=== PATIENT | female | born 1995 | race Caucasian/White ===

== ENCOUNTER → 2023-09-22 16:57 | Outpatient (CLI) | payer OTHER, MEDICAID, SELFPAY ==
--- NOTE | 2023-09-22 17:00 | DI.RAD.S_ITS ---
PROCEDURE: XR RIBS LT MIN 3V W CXR1V INDICATIONS: chest pain, rib pain TECHNIQUE: 2 views of the ribs were acquired, along with a single view chest. COMPARISON: None. FINDINGS: Surgical changes and devices: None. Bones and chest wall: No fractures or dislocations. No suspicious bony lesions. Overlying soft tissues appear unremarkable. Lungs and pleura: No pleural effusions or pneumothorax. Lungs appear clear. Mediastinum: Mediastinal contours appear normal. Heart size is normal. IMPRESSION: No displaced rib fracture or pneumothorax. Dictated by: Royal Kay M.D. on 09/23/2023 at 10:52 Approved by: Royal Kay M.D. on 09/23/2023 at 11:01
== END ==
PROVIDERS: PCP Family Medicine; Referring Provider Family Medicine; Visit Provider Family Medicine
DX: R07.9 Chest pain, unspecified (principal)
CPT/HCPCS: 71101

== ENCOUNTER → 2023-09-26 16:33 | Outpatient (CLI) | payer OTHER, MEDICAID, SELFPAY ==
[2023-09-26 17:26] LABS: Add Manual Diff / Slide Review NO; Basophils Absolute Auto 0 /uL (0-100); Basophils Percent Auto 0.4 % (0-2); Eosinophils Absolute Auto 100 /uL (0-450); Eosinophils Percent Auto 3.1 % (2-4); Hematocrit 37.3 % (36-46); Hemoglobin 12.7 g/dL (12.0-16.0); Lymphocytes Absolute Auto 2100 /uL (1100-4500); Lymphocytes Percent Auto 44.6 % (25-40); Mean Corpuscular HGB Conc 34.1 % (30-36); Mean Corpuscular Hemoglobin 32.4 PG (26-34); Mean Corpuscular Volume 95.1 fL (80-100); Monocytes Absolute Auto 400 /uL (0-900); Monocytes Percent Auto 7.8 % (3-14); Neutrophils Absolute Auto 2100 /uL (1500-7000); Neutrophils Percent Auto 44.1 % (50-75); Platelet Count 197 X10^3/uL (150-400); Red Blood Cell Count 3.93 X10^6/uL (4.0-5.2); Red Cell Distribution Width 12.9 % (11.6-14.8); White Blood Cell Count 4.8 X10^3/uL (4.5-11.0)
[2023-09-26 18:04] LABS: Erythrocyte Sedimentation Rate 5 MM/HR (0-20)
[2023-09-26 18:41] LABS: TSH w/ Reflex to FT4 2.11 uIU/mL (0.47-4.68)
[2023-09-26 21:23] LABS: Alanine Aminotransferase 17 IU/L (<35); Albumin 4.4 g/dL (3.5-5.0); Albumin Globulin Ratio 1.7 (1.0-2.8); Alkaline Phosphatase 49 U/L (38-126); Aspartate Aminotransferase 27 IU/L (14-36); BUN Creatinine Ratio 27.5 (6-22); Bilirubin Total 0.9 mg/dL (0.2-1.3); Blood Urea Nitrogen 19 mg/dL (7-17); C-Reactive Protein Quant < 0.5 mg/dL (<1.0); Calcium 9.4 mg/dL (8.4-10.2); Carbon Dioxide 24 mmol/L (22-32); Chloride 106 mmol/L (98-107); Estimated Glomerular Filt Rate > 60 mL/min (>60); Globulin 2.6 g/dL (1.7-4.1); Glucose 90 mg/dL (70-100); HEMOLYSIS < 15 (0-50); Potassium 4.4 mmol/L (3.4-5.1); Sodium 136 mmol/L (137-145)
== END ==
PROVIDERS: PCP Family Medicine; Referring Provider Family Medicine; Visit Provider Family Medicine
DX: K92.1 Melena (principal); J34.2 Deviated nasal septum; M25.521 Pain in right elbow; F41.9 Anxiety disorder, unspecified; F32.A Depression, unspecified
CPT/HCPCS: 36415; 80053; 82784; 83516; 84443; 85025; 85651; 86140

== ENCOUNTER → 2023-10-13 15:05 | Outpatient (CLI) | payer OTHER, MEDICAID, SELFPAY | LOC: CAR 15:06 | PROVIDERS: PCP Family Medicine; Referring Provider Family Medicine; Visit Provider Family Medicine | DX: R07.9 Chest pain, unspecified (principal) | CPT/HCPCS: 93246 ==

== ENCOUNTER → 2023-12-21 06:47 | Outpatient (CLI) | payer OTHER, SELFPAY ==
--- NOTE | 2023-12-21 06:59 | DI.CT.S_ITS ---
PROCEDURE: CT SINUS SCREEN WO CON INDICATIONS: NASAL OBSTRUCTION / CHRONIC PANSINUSITIS TECHNIQUE: Noncontrast 3.0 mm axial images acquired from the frontal sinuses to the mid-sella, with coronal and sagittal reformats. For radiation dose reduction, the following was used: automated exposure control, adjustment of mA and/or kV according to patient size. COMPARISON: None. FINDINGS: Image quality: Excellent. Maxillary Sinuses: No bony remodeling or destruction. There is mild mucosal thickening within the right maxillary sinus. Ethmoid Air Cells: No bony remodeling or destruction. Sinuses are clear. Sphenoid Sinuses: No bony remodeling or destruction. Sinuses are clear. Frontal Sinuses: No bony remodeling or destruction. Sinuses are clear. Ostiomeatal Complexes: Medial The ostiomeatal complexes are patent, yet they are highly constitutionally narrowed, with bilateral Danielle cells. The right ostiomeatal complex is nearly completely occluded by soft tissue thickening. Miscellaneous: Visualized intra-orbital contents are normal. 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 There is xent-fg-pffttsld rightward nasal septal deviation. Focal left temporomandibular joint degenerative change can be seen, as on series 5, image 12. IMPRESSION: Mild right maxillary sinus mucosal thickening. Highly constitutionally narrowed ostiomeatal complexes, with the right ostiomeatal complex nearly completely occluded by soft tissue thickening. There are bilateral cameron bullosa is seen, [id number] rightward nasal septal deviation. Focal left temporomandibular joint degenerative change noted. Dictated by: Scott Williamson M.D. on 12/21/2023 at 11:31 Approved by: Scott Williamson M.D. on 12/21/2023 at 11:33
== END ==
PROVIDERS: PCP Family Medicine; Referring Provider Otolaryngology; Visit Provider Otolaryngology
DX: J34.89 Other specified disorders of nose and nasal sinuses (principal); J32.4 Chronic pansinusitis; J34.2 Deviated nasal septum; J34.3 Hypertrophy of nasal turbinates
CPT/HCPCS: 70486

== ENCOUNTER → 2024-01-04 17:05 | Outpatient (CLI) | payer OTHER, SELFPAY ==
[2024-01-04 18:53] LABS: Sample 1 Time N
[2024-01-04 18:54] LABS: Occult Blood 1 Negative (Negative); Occult Blood 2 Negative (Negative); Occult Blood 3 Negative (Negative); Sample 2 time N; Sample 3 time N
[2024-01-06 15:09] LABS: C difficie Toxins A and B, EIA Negative (Negative)
== END ==
LOC: LAB 17:07
PROVIDERS: PCP Family Medicine; Referring Provider Family Medicine; Visit Provider Family Medicine
DX: K92.1 Melena (principal); R19.7 Diarrhea, unspecified
CPT/HCPCS: 82270; 87324; 87329

== ENCOUNTER → 2024-03-10 08:57 | Outpatient (CLI) | payer OTHER, SELFPAY ==
--- NOTE | 2024-03-10 | DI.MRI.S_ITS ---
PROCEDURE: MR KNEE LT WO CON INDICATIONS: MENISCAL INJURY,KNEE;ASSESS MEDIAL MENISCUS TECHNIQUE: Noncontrast sagittal PD fast spin echo and T2 fast spin echo with fat saturation, sagittal 3-D FLASH with fat saturation; coronal T1 spin echo and PD fast spin echo with fat saturation, and axial PD fast spin echo with fat saturation through the knee. COMPARISON: None. FINDINGS: Image quality: Excellent. Menisci: Mild extrusion of the medial meniscus body, without tear. The lateral meniscus is unremarkable. Cruciate ligaments: The anterior and posterior cruciate ligaments appear intact. Medial structures: The medial collateral ligament appears intact. The posterior oblique ligament, semimembranosus tendon insertions, oblique popliteal ligament, and meniscocapsular junction appear intact. Visualized portions of the pes anserinus tendons appear normal. No abnormal bursal fluid. Lateral structures: The lateral collateral ligament, long and short heads of the biceps femoris tendon appear intact. The popliteus tendon appears normal; the popliteofibular ligament appears intact. The posterosuperior and anteroinferior popliteomeniscal fascicles appear intact. The arcuate and fabellofibular ligaments appear intact, on either side of the lateral inferior geniculate artery. Iliotibial band appears normal. Anterior structures: The quadriceps and patellar tendons appear intact. Mild lateral tilt of the patella. No femoral trochlear dysplasia or ventral trochlear prominence. No edema in the infrapatellar fat pad. Bones and cartilage: There is multifocal full-thickness high-signal chondral fissuring in the patella the. There is full-thickness low signal chondral fissuring of the central trochlea, with small area of cartilage delamination and mild subchondral marrow edema. The cartilage of the medial compartment is well maintained. The cartilage of the lateral compartment is well maintained as well. Minimally impacted fracture of the posterior medial tibial plateau. Marked marrow contusion of the lateral tibial plateau, about the proximal tibiofibular articulation. Joint space: Small knee effusion. Small popliteal cyst. Popliteal vasculature is unremarkable. IMPRESSION: 1. Mild extrusion of the medial meniscus body, without tear. 2. Lateral tilt of the patella. Mild chondrosis of the patellofemoral compartment. 3. Minimally impacted fracture of the posterior medial tibial plateau. Marked marrow contusion of the lateral tibial plateau. Dictated by: Maryanne Solorio M.D. on 03/12/2024 at 9:59 Approved by: Maryanne Solorio M.D. on 03/12/2024 at 10:11
== END ==
PROVIDERS: PCP Family Medicine; Referring Provider Orthopaedic Surgery; Visit Provider Orthopaedic Surgery
DX: M23.92 Unspecified internal derangement of left knee (principal); M22.42 Chondromalacia patellae, left knee; S80.02XA Contusion of left knee, initial encounter
CPT/HCPCS: 73721

== ENCOUNTER 2024-04-19 09:28 | Day surgery (SDC) | payer OTHER, SELFPAY ==
[2024-04-09 12:08] VITALS: BMI 22.2
[2024-04-19] VITALS (7 sets, daily range): BP systolic 107–141; BP diastolic 66–88; PULSE 69–105; RESP 14–18; TEMP 36.3–36.7; O2SAT 98–100; BMI 22.9
--- NOTE | 2024-04-19 09:46 | PM.PREOP ---
Pre-operative Note Interval Note History & Physical reviewed/Exam performed by Physician: Yes Changes to H&P: No
--- NOTE | 2024-04-19 09:46 | PM.HP.1 ---
History of Present Illness History of Present Illness Date Patient Seen: 04/19/24 Time Patient Seen: 09:46 Chief complaint: TXC Narrative: 29-year-old female last seen in clinic 01/17/2024 presents for scheduled septoplasty, turbinate reduction, and bilateral cameron bullosa resection. No interval health changes, wishes to proceed. FORMERLY [facility], [facility]–1983 Surgical History No history of previous surgery Social History Smoking Status: Never smoker alcohol intake: current Meds Home Medications and Allergies Home Medications Medication Instructions Recorded Confirmed Type escitalopram oxalate 20 mg tablet 20 mg PO DAILY 08/22/23 12/22/23 History (Lexapro) Allergies Allergy/AdvReac Type Severity Reaction Status Date / Time No Known Drug Allergies Allergy Verified 12/22/23 15:45 Review of Systems Review of Systems Narrative: Negative except as listed in the HPI Exam Narrative Exam Narrative: Well-developed well-nourished, heart regular rate and rhythm without murmur, lungs clear to auscultation bilaterally Assessment & Plan Assessment & Plan narrative: Assessment: Nasal airway obstruction, mouth breathing, septal deviation, bilateral cameron bullosa, inferior turbinate hypertrophy, upper airway obstruction Plan: Following discussion of the material risks benefits complications and alternatives, the patient elected to proceed. Time-Based Coding :: [TOTAL MINUTES] spent with patient and on the chart (including review of chart, obtaining history, exam, reviewing outside data, placing orders, documenting exam and treatment plan, and counseling patient) on [DATE].
--- NOTE | 2024-04-19 09:48 | PM.OP.1 ---
Operative Date/Time/Diagnoses Date of procedure: 04/19/24 Time of procedure: 12:58 Pre-op diagnosis: Nasal airway obstruction, mouth breathing, septal deviation, bilateral cameron bullosa, inferior turbinate hypertrophy and respiratory obstruction Post-op diagnosis: same Procedure & Clinicians Procedure: 1. Septoplasty 2. Bilateral endoscopic cameron bullosa resection 3. Bilateral inferior turbinate reduction via intramural cautery Same procedure as scheduled: Yes Indications: 29 Year old with the above diagnoses incompletely managed with medical therapy presents for the above procedure. Following discussion of the material risks benefits complications and alternatives, the patient elected to proceed. Surgeon: Cecil Gtz Click Yes if Unassisted: Yes Anesthesia Type: General and Local Operative Notes Findings: 1 to 2+ primarily LEFT bony and cartilaginous septal deviation, hfur-vsvyvzc-dewa-right inferior turbinate hypertrophy. Woea-yetfnzp-aqmj-right cameron bullosa of the middle turbinates. Poor tip support preoperatively, stable. Procedure in detail: Following identification and confirmation of consent as well as preoperative Afrin nasal spray, the patient was brought to the operating room suite and placed in the supine position. General endotracheal anesthesia was administered. I infiltrated the septum widely bilaterally with 1% lidocaine 1 100,000 epinephrine followed by temporary packing with cotton with Afrin and 4% lidocaine. Following sterile prep and drape, the packing was removed and I performed a right sosa-transfixion incision, elevated the right mucoperichondrial and mucoperiosteal flap. I disarticulated near the bony/cartilaginous junction and elevated the left mucoperiosteal flap. Deviated portions of the perpendicular plate of the ethmoid and vomer were resected. The residual quadrilateral cartilage was further straightened by trimming it inferiorly as well as reducing the maxillary crest. A 2 mm strip of cartilage paralleling the residual 1 cm dorsal strut was resected to further straighten the quadrilateral cartilage. the caudal cartilage was not manipulated, to avoid any possible further weakening of the pre-op poor tip support. The hemitransfixion incision was closed with interrupted 5 0 chromic followed by a running 4 0 plain gut mattress suture to reapproximate the septal flaps. The head of each inferior turbinate had been previously infiltrated with additional local anesthetic and a 25 gauge spinal needle was used to impale the length of the turbinate, with cautery on a setting of 15 activated on slow withdrawal over 2 passes each side. Under endoscopic guidance the posterior and anterior superior insertion of each middle turbinate was then infiltrated with additional local anesthetic via spinal needle, and each middle meatus was filled with cotton pledgets with 1 100,000 epinephrine placed for several minutes. Beginning on the left side, the middle turbinate was slightly medialized and the lateral portion of the cameron bullosa was resected with the microdebrider and forceps, with suction electrocautery on a setting of 10 utilized on the wound edges. This procedure was repeated on the right side with identical findings. At case completion, Hernandez air channel silastic splints were placed bilaterally, sutured anteriorly with a single 4 0 nylon. The procedure completed, sponge and needle counts were correct and the patient was extubated in the operating room and taken to recovery room in stable condition without known complication. Complications: none Post-operative Condition: stable Disposition: same day surgery Plan for aftercare: Nasal saline every hour while awake, begin irrigations t.i.d. tomorrow if tolerated. Polysporin to the nostrils at all times, Tylenol alternating with Advil for pain control, oxycodone for breakthrough pain. Elevate head of bed, no nose blowing, no straining for 2 weeks. Ice directly under the nose on the upper lip has tolerated 24-48 hours at a minimum. Follow-up in 1 week for nasal splint removal.
[2024-04-19] MEDS: OXYMETAZOLINE NASAL SPRAY 30 ML 2 SPRAYS NASAL ×2 (10:18→12:27)
[2024-04-19] MEDS: LACTATED RINGERS 1,000 ML 42 ML IV (10:25)
--- NOTE | 2024-04-19 11:34 | SUR.OPER ---
Supine on padded OR bed, head on gel pad, arms padded and tucked at sides, legs uncrossed, safety belt at thigh, tape over blanket over lower legs .
[2024-04-19] MEDS: LIDOCAINE 4% SOLN 50 ML 20 ML TOP (12:29)
[2024-04-19] MEDS: LIDOCAINE 1% W/EPI 20ML 20 ML INJ (12:35)
[2024-04-19] MEDS: EPINEPHrine 1 MG/ML 5 MG TOP (12:44)
[2024-04-19] MEDS: OXYCODONE IR 5 MG TABLET PO ×2 (13:06→13:36)
== END 2024-04-19 14:10 | disposition home or self-care (01) ==
PROVIDERS: PCP Family Medicine; Referring Provider Otolaryngology; Visit Provider Otolaryngology
PROC: 09QM4ZZ Repair Nasal Septum, Percutaneous Endoscopic Approach (ICD-10-PCS; CPT 30520; principal; 2024-04-19 10:30)
DX: J34.2 Deviated nasal septum (principal); J34.89 Other specified disorders of nose and nasal sinuses; J98.8 Other specified respiratory disorders; J34.3 Hypertrophy of nasal turbinates; J34.9 Unspecified disorder of nose and nasal sinuses; R06.5 Mouth breathing
CPT/HCPCS: 30520; 31240; 30802; J0171; J1100; J2250; J2405; J2704; J3010